=== PATIENT | female | born 1965 | race Caucasian/White ===

== ENCOUNTER 2018-10-06 15:50 | Emergency (ER) | payer OTHER, SELFPAY ==
[2018-10-06 16:06] VITALS: BP 147/86; PULSE 97; RESP 18; TEMP 36.9; O2SAT 95
--- NOTE | 2018-10-06 16:12 | DI.RAD.S_ITS ---
PROCEDURE: XR HAND LT MIN 3V INDICATIONS: deformity TECHNIQUE: 3 views of the hand(s) acquired. COMPARISON: None. FINDINGS: Bones: No previously unidentified fractures or dislocations. The multiple fracture planes involving the distal radius and ulna are again seen and better visualized by the prior dedicated wrist plain films. Carpal bones are normally aligned. No suspicious bony lesions. Soft tissues: No suspicious soft tissue calcifications. IMPRESSION: Please refer to dedicated wrist plain film report from same date. 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 The carpal bones visualized appear intact. Dictated by: Michael Clark M.D. on 10/06/2018 at 16:45 Approved by: Michael Clark M.D. on 10/06/2018 at 16:45
--- NOTE | 2018-10-06 16:12 | DI.RAD.S_ITS ---
PROCEDURE: XR WRIST LT MIN 3V INDICATIONS: deformity TECHNIQUE: 3 views of the wrist were acquired. COMPARISON: None. FINDINGS: Bones: No dislocations. No suspicious bony lesions. There is a comminuted impacted intra-articular and dorsally angulated distal radius Colles' fracture in addition to a fracture across the base of the ulnar styloid process Scaphoid view: Not obtained of the scaphoid visualized appears normal Soft tissues: No suspicious soft tissue calcifications. IMPRESSION: Significant traumatic injury to the distal radius has occurred with intra-articular dorsally angulated and impacted multiple fracture planes, displacing and angulating the carpal bones somewhat dorsally on the lateral view. Ulnar styloid process base fracture. Dictated by: Michael Clark M.D. on 10/06/2018 at 16:43 Approved by: Michael Clark M.D. on 10/06/2018 at 16:44
--- NOTE | 2018-10-06 17:25 | ED.UPPEXIN ---
HPI - Extremity Injury (Upper) General Chief Complaint: Extremity Injury, Upper Stated Complaint: FALL LEFT HAND INJURY Time Seen by Provider: 10/06/18 17:14 Source: patient and family Mode of arrival: ambulatory Limitations: no limitations History of Present Illness HPI narrative: This is a 53-year-old female comes to the emergency department after falling. Patient is complaining of pain in her left wrist. Patient states that she was washing a 15 passenger van the hose got stuck, she pulled on it gave way and she fell backwards. Patient states that she immediately had pain and new there was a problem. She has deformity. She does not any numbness or tingling. She has injury to the 3rd finger out she states occurred last week. She fell while pulling a dock cart and fell onto a metal graded walkway cutting the finger. She did not have any repair because they live on [address]. She has been keeping it clean. She states her tetanus is not up-to-date. Patient denies any other injuries. She states she did not hit her head, she denies any neck or back injury. she does not have any numbness, tingling or weakness. Related Data Home Medications Medication Instructions Recorded Confirmed levothyroxine 75 mcg PO DAILY 10/06/18 10/06/18 thyroid (pork) [RN MDS COORDINATOR Thyroid] 30 mg PO DAILY 10/06/18 Previous Rx's Medication Instructions Recorded acetaminophen-codeine 1 tab PO Q6H PRN #14 tab 10/06/18 [Tylenol-Codeine #3] ondansetron HCl [Zofran] 4 mg PO QID PRN #14 tab 10/06/18 Allergies Allergy/AdvReac Type Severity Reaction Status Date / Time No Known Drug Allergies Allergy Verified 10/06/18 16:06 Review of Systems Review of Systems ROS Unobtainable: All systems reviewed & are unremarkable except as noted in HPI and below Constitutional Denies weakness Musculoskeletal Reports as per HPI, Reports deformity, Reports arthralgias (Left wrist), Reports limited range of motion, Denies muscle weakness, Denies numbness and Denies tingling Integumentary/Breasts Reports unusual bruising and Reports wounds (3rd finger from last week) Neurologic Denies numbness, Denies tingling, Denies paresthesias and Denies weakness [facility] Medical History (Updated 10/06/18 @ 19:30 by Virginia James DO) Hypothyroid (Chronic) Social History Smoking Status: Never smoker Social History (Updated 10/06/18 @ 17:45 by Virginia James DO) details: Lives on [address] household members: spouse lives independently: Yes Smoking Status: Never smoker Exam Narrative Exam Narrative: GENERAL: Alert and oriented x three, well-nourished, well-appearing female in mild distress. HEENT: Head normocephalic, atraumatic, EOMI, pupils reactive, face symmetric, moist mucous membranes NECK: Supple, full range of motion CARDIOVASCULAR: Regular rate and rhythm without murmurs, rubs or gallops. RESPIRATORY: Breath sounds equal bilaterally, no wheezes rales or rhonchi. ABDOMEN: Soft, nontender. Normoactive bowel sounds all 4 quadrants. No guarding or rebound, rigidity, no mass EXTREMITIES: Normal range of motion, no clubbing or edema. except for at the left upper extremity. Patient has 2+ radial pulse. She has obvious deformity at the wrist. Patient has sensation in all 5 fingers. She has full range of motion. she does have increased pain with movement of the thumb. Patient does have add injury to the distal 3rd finger. NEUROLOGICAL: Cranial nerves II through XII grossly intact. Moving all extremities SKIN: Warm, dry, no petechiae, no rashes or lesions. Initial Vital Signs Initial Vital Signs: Vital Signs Temperature 98.5 F 10/06/18 16:06 Pulse Rate 97 H 10/06/18 16:06 Respiratory Rate 18 10/06/18 16:06 Blood Pressure 147/86 H 10/06/18 16:06 Pulse Oximetry 95 10/06/18 16:06 Procedures Orthopedic Joint Reduction Joint #1: Time Out Performed: Yes Side: left Joint Reduction Location: wrist Analgesia: hematoma block Local Anesthesia: lidocaine 1% Amount of anesthesic used (mL): 8 Technique used: traction/counter-traction Post-reduction neuro exam: intact Post-reduction vascular: intact Post Reduction X-Ray Obtained: Yes Splint Applied: Yes Patient Tolerated Procedure: Well (patient felt slightly nauseated/lightheaded after procedure.) [facility] [place] Procedure Name of Procedure: Hematoma wrist block Side (if applicable): left Location: Left wrist Time out performed: Yes Technique/Description of procedure performed: Verbal consent was obtained from the patient with her and nursing at bedside. Patient's area was cleansed with alcohol and chlorhexidine swab. A 25 gauge needle was inserted, aspiration with no blood and 8 cc of 1% lidocaine was injected into the joint space. Patient did have improvement of her pain at the joint. Patient tolerated procedure: Well Complications: none Course Orders Ordered: ED Orders 10/06/18 16:12 XR hand LT min 3V Stat XR wrist LT min 3V Stat 10/06/18 19:26 XR wrist LT 2V Stat Discontinued Medications Hydrocodone Bitart/Acetaminophen ([place] 5/325) 1 tab PO NOW ONE Stop: 10/06/18 17:41 Last Admin: 10/06/18 17:51 Dose: 1 tab Diphtheria/Tetanus/Acell Pertussis (Adacel) 0.5 ml IM .ONCE ONE Stop: 10/06/18 17:44 Last Admin: 10/06/18 17:58 Dose: 0.5 ml Ondansetron HCl (Zofran Odt) 4 mg SL NOW ONE Stop: 10/06/18 17:41 Last Admin: 10/06/18 17:51 Dose: 4 mg Vital Signs - 8 hr 10/06/18 16:06 10/06/18 19:53 10/06/18 20:10 Temperature 98.5 F Pulse Rate 97 H 78 79 Respiratory Rate 18 18 18 Blood Pressure 147/86 H Blood Pressure [Right Arm] 98/58 L 115/68 Pulse Oximetry 95 98 MDM - Extremity Injury (Upper) Imaging Data left wrist xray: Radiologist's impression: [address] [address] XRay Report Signed Patient: Natalie Gibson [facility]#: [id number] : 1965Acct:[id number] Age/Sex: 53 / FDate of Service: 10/06/18 Loc: ED Accession Number: [id number] Procedure: XR wrist LT min 3V Ordering Provider: Virginia James D.O. PROCEDURE: XR WRIST LT MIN 3V INDICATIONS: deformity TECHNIQUE: 3 views of the wrist were acquired. COMPARISON: None. FINDINGS: Bones: No dislocations. No suspicious bony lesions. There is a comminuted impacted intra-articular and dorsally angulated distal radius Colles' fracture in addition to a fracture across the base of the ulnar styloid process Scaphoid view: Not obtained of the scaphoid visualized appears normal Soft tissues: No suspicious soft tissue calcifications. IMPRESSION: Significant traumatic injury to the distal radius has occurred with intra-articular dorsally angulated and impacted multiple fracture planes, displacing and angulating the carpal bones somewhat dorsally on the lateral view. Ulnar styloid process base fracture. Dictated by: Michael Clark M.D. on 10/06/2018 at 16:43 Approved by: Michael Clark M.D. on 10/06/2018 at 16:44 hand xray: Radiologist's impression: [address] [address] XRay Report Signed Patient: Natalie Gibson [facility]#: [id number] : 1965Acct:[id number] Age/Sex: 53 / FDate of Service: 10/06/18 Loc: ED Accession Number: [id number] Procedure: XR hand LT min 3V Ordering Provider: Virginia James D.O. PROCEDURE: XR HAND LT MIN 3V INDICATIONS: deformity TECHNIQUE: 3 views of the hand(s) acquired. COMPARISON: None. FINDINGS: Bones: No previously unidentified fractures or dislocations. The multiple fracture planes involving the distal radius and ulna are again seen and better visualized by the prior dedicated wrist plain films. Carpal bones are normally aligned. No suspicious bony lesions. Soft tissues: No suspicious soft tissue calcifications. IMPRESSION: Please refer to dedicated wrist plain film report from same date. 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 The carpal bones visualized appear intact. Dictated by: Michael Clark M.D. on 10/06/2018 at 16:45 Approved by: Michael Clark M.D. on 10/06/2018 at 16:45 Post left x-ray: Attestation: I personally reviewed and interpreted this imaging study as follows: My impression: Mild improvement in alignment. Radiologist's impression: [address] [address] XRay Report Signed Patient: Natalie Gibson [facility]#: [id number] : 1965Acct:[id number] Age/Sex: 53 / FDate of Service: 10/06/18 Loc: ED Accession Number: [id number] Procedure: XR wrist LT 2V Ordering Provider: Virginia James D.O. PROCEDURE: XR WRIST LT 2V INDICATIONS: post reduction TECHNIQUE: 2 views of the wrist were acquired. COMPARISON: [facility], CR, XR WRIST LT MIN 3V, 10/06/2018, 16:15. FINDINGS: Bones are viewed through cast material. Again noted is an impacted, severely comminuted distal radius fracture. Overall dorsal angulation is improved. An ulnar styloid avulsion is noted. IMPRESSION: Interval improvement of angulation in a markedly comminuted impacted distal radius fracture extending to the articular surface. Associated ulnar styloid fracture. Dictated by: Nuno Garza M.D. on 10/06/2018 at 20:26 Approved by: Nuno Garza M.D. on 10/06/2018 at 20:28 MDM Narrative Medical decision making narrative: Spoke with Dr. Salgado, plan for splinting, reduction and follow up outpatient for surgical repair. Discussed images including intra-articular in multiple pieces common impacted along with angulation and ulnar styloid process injury. patient did not wish to have a conscious sedation for attempted reduction. We discussed a hematoma block. She prefers to do this. Attempted patient had decent pain control but was difficult to manipulate, patient had very mild improvement. She tolerated the procedure well other than feeling a little bit lightheaded and nauseated. She had a little bit tingling immediately after the procedure but as lidocaine seems to wear off the tingling seems to be improving. We did reach just her splint. She is placed in a sugar-tong by nursing and myself. Patient's blood pressure was a little bit low afterwards. Switched her from [place] to Tylenol 3 for home as this may be part of the issue and send was Zofran as needed as well that she can take with the narcotic pain medication. Discharge Plan Departure Patient Disposition: Home Clinical Impression: Fracture of ulnar styloid Distal radial fracture Qualifiers: Encounter type: initial encounter Fracture type: closed Fracture morphology: other intra-articular Laterality: left Qualified Code(s): S52.572A - Other intraarticular fracture of lower end of left radius, initial encounter for closed fracture Discharge Date/Time: 10/06/18 20:27 Interventions: ED Discharge Assessment Last Done: 10/06/18 20:23 Instructions: DI for Wrist Fracture Activity Restrictions/Additional Instructions: Tuesday to set up follow-up with Orthopedic surgery. Let the office know you were seen in the ER any follow-up this week. You may take Tylenol up to a 1000 mg every 8 hours as needed for pain. You may take Tylenol #3 instead, this does have narcotic in it this medication can make you sleepy so do not drive, perform hazardous activities or make any major decisions while taking it. Splint Care: Keep splint clean and dry. Elevated affected body part to decrease swelling. OK to use ice pack on the affected body part. Use for 15-20 minutes each time, for 5-6x per day. If you develop worsening pain, numbness, tingling, discoloration of the affected body part, loosen the splint by loosening the KARMA wrap, and either see your doctor for an urgent re-assessment, or return to the Emergency Department. Return to the Emergency Department for any new or worsening symptoms. Prescriptions: New ondansetron HCl [Zofran] 4 mg tablet 4 mg PO QID PRN (Reason: nausea and vomiting) Qty: 14 RF: 0 acetaminophen-codeine [Tylenol-Codeine #3] 300-30 mg tablet 1 tab PO Q6H PRN (Reason: pain) Qty: 14 RF: 0 No Action levothyroxine 75 mcg tablet 75 mcg PO DAILY RF: 0 thyroid (pork) [RN MDS COORDINATOR Thyroid] 30 mg tablet 30 mg PO DAILY RF: 0 Referrals: Alexis Salgado MD [Physician] - 10/09/18 (call Tuesday for follow up appointment during the week.)
--- NOTE | 2018-10-06 17:30 | ED_ITS ---
HPI - Extremity Injury (Upper) General Chief Complaint: Extremity Injury, Upper Stated Complaint: FALL LEFT HAND INJURY Time Seen by Provider: 10/06/18 17:14 Source: patient and family Mode of arrival: ambulatory Limitations: no limitations History of Present Illness HPI narrative: This is a 53-year-old female comes to the emergency department after falling. Patient is complaining of pain in her left wrist. Patient states that she was washing a 15 passenger van the hose got stuck, she pulled on it gave way and she fell backwards. Patient states that she immediately had pain and new there was a problem. She has deformity. She does not any numbness or tingling. She has injury to the 3rd finger out she states occurred last week. She fell while pulling a dock cart and fell onto a metal graded walkway cutting the finger. She did not have any repair because they live on [address]. She has been keeping it clean. She states her tetanus is not up-to-date. Patient denies any other injuries. She states she did not hit her head, she denies any neck or back injury. she does not have any numbness, tingling or weakness. Related Data Home Medications Medication Instructions Recorded Confirmed levothyroxine 75 mcg PO DAILY 10/06/18 10/06/18 thyroid (pork) [[employer] Thyroid] 30 mg PO DAILY 10/06/18 Previous Rx's Medication Instructions Recorded acetaminophen-codeine 1 tab PO Q6H PRN #14 tab 10/06/18 [Tylenol-Codeine #3] ondansetron HCl [Zofran] 4 mg PO QID PRN #14 tab 10/06/18 Allergies Allergy/AdvReac Type Severity Reaction Status Date / Time No Known Drug Allergies Allergy Verified 10/06/18 16:06 Review of Systems Review of Systems ROS Unobtainable: All systems reviewed & are unremarkable except as noted in HPI and below Constitutional Denies weakness Musculoskeletal Reports as per HPI, Reports deformity, Reports arthralgias (Left wrist), Reports limited range of motion, Denies muscle weakness, Denies numbness and Denies tingling Integumentary/Breasts Reports unusual bruising and Reports wounds (3rd finger from last week) Neurologic Denies numbness, Denies tingling, Denies paresthesias and Denies weakness [facility] Medical History (Updated 10/06/18 @ 19:30 by Virginia James DO) Hypothyroid (Chronic) Social History Smoking Status: Never smoker Social History (Updated 10/06/18 @ 17:45 by Virginia James DO) details: Lives on [address] household members: spouse lives independently: Yes Smoking Status: Never smoker Exam Narrative Exam Narrative: GENERAL: Alert and oriented x three, well-nourished, well- appearing female in mild distress. HEENT: Head normocephalic, atraumatic, EOMI, pupils reactive, face symmetric, moist mucous membranes NECK: Supple, full range of motion CARDIOVASCULAR: Regular rate and rhythm without murmurs, rubs or gallops. RESPIRATORY: Breath sounds equal bilaterally, no wheezes rales or rhonchi. ABDOMEN: Soft, nontender. Normoactive bowel sounds all 4 quadrants. No guarding or rebound, rigidity, no mass EXTREMITIES: Normal range of motion, no clubbing or edema. except for at the left upper extremity. Patient has 2+ radial pulse. She has obvious deformity at the wrist. Patient has sensation in all 5 fingers. She has full range of motion. she does have increased pain with movement of the thumb. Patient does have add injury to the distal 3rd finger. NEUROLOGICAL: Cranial nerves II through XII grossly intact. Moving all extremities SKIN: Warm, dry, no petechiae, no rashes or lesions. Initial Vital Signs Initial Vital Signs: Vital Signs Temperature 98.5 F 10/06/18 16:06 Pulse Rate 97 H 10/06/18 16:06 Respiratory Rate 18 10/06/18 16:06 Blood Pressure 147/86 H 10/06/18 16:06 Pulse Oximetry 95 10/06/18 16:06 Procedures Orthopedic Joint Reduction Joint #1: Time Out Performed: Yes Side: left Joint Reduction Location: wrist Analgesia: hematoma block Local Anesthesia: lidocaine 1% Amount of anesthesic used (mL): 8 Technique used: traction/counter-traction Post-reduction neuro exam: intact Post-reduction vascular: intact Post Reduction X-Ray Obtained: Yes Splint Applied: Yes Patient Tolerated Procedure: Well (patient felt slightly nauseated/lightheaded after procedure.) [facility] [place] Procedure Name of Procedure: Hematoma wrist block Side (if applicable): left Location: Left wrist Time out performed: Yes Technique/Description of procedure performed: Verbal consent was obtained from the patient with her and nursing at bedside. Patient's area was cleansed with alcohol and chlorhexidine swab. A 25 gauge needle was inserted, aspiration with no blood and 8 cc of 1% lidocaine was injected into the joint space. Patient did have improvement of her pain at the joint. Patient tolerated procedure: Well Complications: none Course Orders Ordered: ED Orders 10/06/18 16:12 XR hand LT min 3V Stat XR wrist LT min 3V Stat 10/06/18 19:26 XR wrist LT 2V Stat Discontinued Medications Hydrocodone Bitart/Acetaminophen ([place] 5/325) 1 tab PO NOW ONE Stop: 10/06/18 17:41 Last Admin: 10/06/18 17:51 Dose: 1 tab Diphtheria/Tetanus/Acell Pertussis (Adacel) 0.5 ml IM .ONCE ONE Stop: 10/06/18 17:44 Last Admin: 10/06/18 17:58 Dose: 0.5 ml Ondansetron HCl (Zofran Odt) 4 mg SL NOW ONE Stop: 10/06/18 17:41 Last Admin: 10/06/18 17:51 Dose: 4 mg Vital Signs - 8 hr 10/06/18 16:06 10/06/18 19:53 10/06/18 20:10 Temperature 98.5 F Pulse Rate 97 H 78 79 Respiratory Rate 18 18 18 Blood Pressure 147/86 H Blood Pressure [Right Arm] 98/58 L 115/68 Pulse Oximetry 95 98 MDM - Extremity Injury (Upper) Imaging Data left wrist xray: Radiologist's impression: [address] [address] XRay Report Signed Patient: Natalie Gibson [facility]#: [id number] : 1965Acct:[id number] Age/Sex: 53 / FDate of Service: 10/06/18 Loc: ED Accession Number: [id number] Procedure: XR wrist LT min 3V Ordering Provider: Virginia James D.O. PROCEDURE: XR WRIST LT MIN 3V INDICATIONS: deformity TECHNIQUE: 3 views of the wrist were acquired. COMPARISON: None. FINDINGS: Bones: No dislocations. No suspicious bony lesions. There is a comminuted impacted intra-articular and dorsally angulated distal radius Colles' fracture in addition to a fracture across the base of the ulnar styloid process Scaphoid view: Not obtained of the scaphoid visualized appears normal Soft tissues: No suspicious soft tissue calcifications. IMPRESSION: Significant traumatic injury to the distal radius has occurred with intra-articular dorsally angulated and impacted multiple fracture planes, displacing and angulating the carpal bones somewhat dorsally on the lateral view. Ulnar styloid process base fracture. Dictated by: Michael Clark M.D. on 10/06/2018 at 16:43 Approved by: Michael Clark M.D. on 10/06/2018 at 16:44 hand xray: Radiologist's impression: [address] [address] XRay Report Signed Patient: Natalie Gibson [facility]#: [id number] : 1965Acct:[id number] Age/Sex: 53 / FDate of Service: 10/06/18 Loc: ED Accession Number: [id number] Procedure: XR hand LT min 3V Ordering Provider: Virginia James D.O. PROCEDURE: XR HAND LT MIN 3V INDICATIONS: deformity TECHNIQUE: 3 views of the hand(s) acquired. COMPARISON: None. FINDINGS: Bones: No previously unidentified fractures or dislocations. The multiple fracture planes involving the distal radius and ulna are again seen and better visualized by the prior dedicated wrist plain films. Carpal bones are normally aligned. No suspicious bony lesions. Soft tissues: No suspicious soft tissue calcifications. IMPRESSION: Please refer to dedicated wrist plain film report from same date. 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 The carpal bones visualized appear intact. Dictated by: Michael Clark M.D. on 10/06/2018 at 16:45 Approved by: Michael Clark M.D. on 10/06/2018 at 16:45 Post left x-ray: Attestation: I personally reviewed and interpreted this imaging study as follows: My impression: Mild improvement in alignment. Radiologist's impression: [address] [address] XRay Report Signed Patient: Natalie Gibson MMR#: [id number] : 1965Acct:[id number] Age/Sex: 53 / FDate of Service: 10/06/18 Loc: ED Accession Number: [id number] Procedure: XR wrist LT 2V Ordering Provider: Virginia James D.O. PROCEDURE: XR WRIST LT 2V INDICATIONS: post reduction TECHNIQUE: 2 views of the wrist were acquired. COMPARISON: [facility], CR, XR WRIST LT MIN 3V, 10/06/2018, 16:15. FINDINGS: Bones are viewed through cast material. Again noted is an impacted, severely comminuted distal radius fracture. Overall dorsal angulation is improved. An ulnar styloid avulsion is noted. IMPRESSION: Interval improvement of angulation in a markedly comminuted impacted distal radius fracture extending to the articular surface. Associated ulnar styloid fr acture. Dictated by: Nuno Garza M.D. on 10/06/2018 at 20:26 Approved by: Nuno Garza M.D. on 10/06/2018 at 20:28 MDM Narrative Medical decision making narrative: Spoke with Dr. Salgado, plan for splinting, reduction and follow up outpatient for surgical repair. Discussed images including intra-articular in multiple pieces common impacted along with angulation and ulnar styloid process injury. patient did not wish to have a conscious sedation for attempted reduction. We discussed a hematoma block. She prefers to do this. Attempted patient had decent pain control but was difficult to manipulate, patient had very mild improvement. She tolerated the procedure well other than feeling a little bit lightheaded and nauseated. She had a little bit tingling immediately after the procedure but as lidocaine seems to wear off the tingling seems to be improving. We did reach just her splint. She is placed in a sugar-tong by nursing and myself. Patient's blood pressure was a little bit low afterwards. Switched her from [place] to Tylenol 3 for home as this may be part of the issue and send was Zofran as needed as well that she can take with the narcotic pain medication. Discharge Plan Departure Patient Disposition: Home Clinical Impression: Fracture of ulnar styloid Distal radial fracture Qualifiers: Encounter type: initial encounter Fracture type: closed Fracture morphology: other intra-articular Laterality: left Qualified Code(s): S52.572A - Other intraarticular fracture of lower end of left radius, initial encounter for closed fracture Discharge Date/Time: 10/06/18 20:27 Interventions: ED Discharge Assessment Last Done: 10/06/18 20:23 Instructions: DI for Wrist Fracture Activity Restrictions/Additional Instructions: Tuesday morning to set up follow-up with Orthopedic surgery. Let the office know you were seen in the ER any follow-up this week. You may take Tylenol up to a 1000 mg every 8 hours as needed for pain. You may take Tylenol #3 instead, this does have narcotic in it this medication can make you sleepy so do not drive, perform hazardous activities or make any major decisions while taking it. Splint Care: Keep splint clean and dry. Elevated affected body part to decrease swelling. OK to use ice pack on the affected body part. Use for 15-20 minutes each time, for 5-6x per day. If you develop worsening pain, numbness, tingling, discoloration of the affected body part, loosen the splint by loosening the KARMA wrap, and either see your doctor for an urgent re-assessment, or return to the Emergency Department. Return to the Emergency Department for any new or worsening symptoms. Prescriptions: New ondansetron HCl [Zofran] 4 mg tablet 4 mg PO QID PRN (Reason: nausea and vomiting) Qty: 14 RF: 0 acetaminophen-codeine [Tylenol-Codeine #3] 300-30 mg tablet 1 tab PO Q6H PRN (Reason: pain) Qty: 14 RF: 0 No Action levothyroxine 75 mcg tablet 75 mcg PO DAILY RF: 0 thyroid (pork) [[employer] Thyroid] 30 mg tablet 30 mg PO DAILY RF: 0 Referrals: Alexis Salgado MD [Physician] - 10/09/18 (call Tuesday for follow up appointment during the week.)
[2018-10-06] MEDS: HYDROCODONE/ACET 5/325 TABLET 1 TAB PO (17:51)
[2018-10-06] MEDS: ONDANSETRON 4 MG ODT SL (17:51)
[2018-10-06] MEDS: TET,DIPH,PERTUSS(ACELL),VAC/PF 0.5 ML SYRINGE IM (17:58)
--- NOTE | 2018-10-06 18:37 | PC.NURSE ---
noted obvious deformity and swelling in L radial aspect of wrist
--- NOTE | 2018-10-06 19:26 | DI.RAD.S_ITS ---
PROCEDURE: XR WRIST LT 2V INDICATIONS: post reduction TECHNIQUE: 2 views of the wrist were acquired. COMPARISON: [facility], CR, XR WRIST LT MIN 3V, 10/06/2018, 16:15. FINDINGS: Bones are viewed through cast material. Again noted is an impacted, severely comminuted distal radius fracture. Overall dorsal angulation is improved. An ulnar styloid avulsion is noted. IMPRESSION: Interval improvement of angulation in a markedly comminuted impacted distal radius fracture extending to the articular surface. Associated ulnar styloid fracture. Dictated by: Nuno Garza M.D. on 10/06/2018 at 20:26 Approved by: Nuno Garza M.D. on 10/06/2018 at 20:28
[2018-10-06 19:53] VITALS: BP 98/58; PULSE 78; RESP 18
[2018-10-06 20:10] VITALS: BP 115/68; PULSE 79; RESP 18; O2SAT 98
== END 2018-10-06 20:27 | disposition home or self-care (01) ==
PROVIDERS: Emergency Provider Emergency Medicine
DX: S52.613A Displaced fracture of unspecified ulna styloid process, initial encounter for closed fracture (principal); S52.501A Unspecified fracture of the lower end of right radius, initial encounter for closed fracture; W19.XXXA Unspecified fall, initial encounter; Y99.0 Civilian activity done for income or pay; Z23 Encounter for immunization
CPT/HCPCS: 25650; 29125; 64450; 73100; 73110; 73130; 90471; 99283; 99284; 90715

== ENCOUNTER 2018-10-11 09:02 | Day surgery (SDC) | payer OTHER, SELFPAY ==
[2018-10-11] VITALS (7 sets, daily range): BP systolic 110–150; BP diastolic 56–90; PULSE 69–92; RESP 16–18; TEMP 36.4–37.1; O2SAT 94–99; BMI 26.9
[2018-10-11] MEDS: LACTATED RINGERS 1,000 ML 42 ML IV ×2 (13:30→14:41)
--- NOTE | 2018-10-11 13:31 | P.HP_ITS ---
History of Present Illness Date Patient Seen: 10/11/18 Time Patient Seen: 13:30 Chief complaint: 93592 OFIF LEFT DISTAL RADIUS FX Narrative: Patient is a 53-year-old woman who fell last Tuesday on October 06, 2018 injuring her left wrist. Radiographs emergency room revealed a displaced intra- articular distal radius fracture. The wrist was reduced and splinted. She denies any numbness or tingling. She has been using Tylenol No. 3 at night for pain. she denies previous problems with the wrist. Patient History Medical History Left wrist fracture (Acute 10/06/18) Hypothyroid (Chronic) Social History (Updated 10/06/18 @ 17:45 by Virginia James DO) details: Lives on [address] household members: spouse lives independently: Yes Smoking Status: Never smoker alcohol intake: current Comment: Her only surgery is a previous hysterectomy. Family & Social History Social History: household members spouse lives independently Yes Tobacco & Substance use: Smoking Status Never smoker alcohol intake current alcohol intake frequency 0-2 drinks per day Substance Use Type does not use Meds Home Medications Medication Instructions Recorded Confirmed Type acetaminophen-codeine 1 tab PO Q6H PRN #14 tab 10/06/18 10/11/18 Rx [Tylenol-Codeine #3] levothyroxine 75 mcg PO DAILY 10/06/18 10/11/18 History ondansetron HCl [Zofran] 4 mg PO QID PRN #14 tab 10/06/18 10/10/18 Rx thyroid (pork) [[employer] Thyroid] 30 mg PO DAILY 10/06/18 10/11/18 History Allergies Allergy/AdvReac Type Severity Reaction Status Date / Time bacitracin Allergy Hives Verified 10/11/18 12:13 [From Neosporin ([id number])] neomycin Allergy Hives Verified 10/11/18 12:13 [From Neosporin ([id number])] polymyxin B Allergy Hives Verified 10/11/18 12:13 [From Neosporin ([id number])] Review of Systems Review of Systems All systems reviewed & are unremarkable except as noted in HPI and below Exam Vital Signs (past 8 hours): - 10/11/18 11:59 Temperature 97.8 F Pulse Rate 88 Respiratory Rate 18 Blood Pressure 150/90 H Pulse Oximetry 99 Oxygen Delivery Method Room Air Const General: cooperative and healthy appearing Orientation: alert, awake and oriented x3 Resp Auscultation: clear to auscultation bilaterally Cardio Rate: regular rate Rhythm: regular rhythm Neuro Other: Sensation is intact to light touch throughout. Motor function is grossly intact but cannot be fully tested due to splint. She does have a Band-Aid on her finger where she scraped it about a week earlier. Extrem Other: The left arm is in a splint which was not removed for examination. There is a Band-Aid on the finger. No signs of infection. The fracture itself is closed. Swelling is relatively minimal. Tenderness over the distal radius. Assessment & Plan Assessment & Plan narrative: Displaced intra-articular left distal radius fracture. I discussed the nature of the injury and further treatment options with the patient. I have recommended open reduction internal fixation with a locking distal humeral plate. the nature of that procedure including the risks, benefits, alternatives, postoperative course and expected outcome were discussed and all questions answered. Operative site confirmed and marked. Time Spent With Patient Time with patient: 15-24 minutes
--- NOTE | 2018-10-11 13:31 | PM.PREOP ---
Pre-operative Note Interval Note History & Physical reviewed/Exam performed by Physician: Yes Changes to H&P: No
--- NOTE | 2018-10-11 13:35 | PM.OP.1 ---
Operative Date/Time/Diagnoses Date of procedure: 10/11/18 Time of procedure: 15:00 Pre-op diagnosis: Displaced intra-articular distal radius fracture left wrist. Post-op diagnosis: same Procedure & Clinicians Procedure: Open reduction internal fixation left distal radius fracture with locking plate. Same procedure as scheduled: Yes Indications: The patient presents today for open reduction internal fixation left distal radius fracture. The nature of the procedure including the risks and benefits, alternatives, postoperative course and expected outcome were discussed and all questions answered. Consent was obtained. Operative site confirmed and marked. Surgeon: Alexis Salgado Sand Temperer: Addison Jiménez Anesthesia Type: General, Peripheral nerve block and Local Operative Notes Findings: The distal radius fracture was intra-articular but the intra-articular fragment was not significant displaced. A relatively anatomic reduction was obtained. Final fluoroscopy shows a nice positioning of both the fracture and plate. Closure Type: primary Specimen(s): none sent Prosthetic devices, grafts, tissues, transplants, or devices: Hand innovation locking distal radial plate, DVR Applied: implant(s) Estimated Blood Loss (mL): 5 Blood products transfused: none Tourniquet time (min): 56 Procedure in detail: The patient was taken operative suite and placed under general anesthesia. Prophylactic antibiotics were given prior to surgery. the arm was then prepped and draped usual sterile fashion. The arm was exsanguinated with an Esmarch dressing and tourniquet raised to 200 torr. An 8 cm incision was made directly over the flexor carpi radialis extending from the wrist crease proximally. tenotomy scissors were used to dissect the subcutaneous tissue and expose the extensor carpi radialis tendon. both the superficial and deep sheath was incised and the tendon retracted radially blunt dissection was then carried out to expose the pronator quadratus. The pronator quadratus was elevated off the bone exposing the distal radius and fracture site. the locking plate was selected and provisionally pinned and checked on fluoroscopy. Once the plate was adequate it was locked to the shaft with a single bicortical screw. next all of the distal peg holes were filled with smooth pegs. AP and lateral fluoroscopy was performed to ensure none of the hardware entered the joint. the final 2 shaft screws were then placed. final AP and lateral fluoroscopy showed excellent position of the fracture and hardware. The wound was copiously irrigated. The wound was then anesthetized with 8 cc 0.5% Marcaine with epinephrine. the wound was closed with some interrupted 3 O Vicryl and then a running for O nylon suture at the skin level. Xeroform sterile gauze dressings were applied. The patient was placed in a volar splint leaving the fingers and elbow free. The patient tolerated procedure well and was returned recovery room in good condition. Complications: none Condition: stable Disposition: same day surgery Plan for aftercare: The patient will keep the splint on until clinic follow-up. Follow up in 12-14 days. Sutures will be removed and repeat x-rays taken at follow-up. She will then be switched to a removable brace. She was instructed in pronation and supination range of motion exercises.
[2018-10-11] MEDS: MIDAZOLAM 2 MG/2 ML VIAL IV (13:42)
[2018-10-11] MEDS: fentaNYL 100 MCG/2 ML INJ 50 MCG IV (13:44)
[2018-10-11] MEDS: CLINDAMYCIN 600 MG/50 ML PIGGYBACK 50 MG IV (13:50)
--- NOTE | 2018-10-11 14:04 | SUR.PREOP ---
Block start time 1344 . Monitoring initiated and maintained throughout procedure. Oxygen and medications given per anesthesiologist instructions. Patient remained stable throughout procedure, no adverse reactions noted. Block end time [1349].
--- NOTE | 2018-10-11 14:21 | SUR.OPER ---
Supine on padded OR bed, head on pillow, non-operative arm secured on padded arm board at <90 degrees abduction, legs uncrossed, pillow under knees, safety belt at thigh, tape over blanket over lower legs.
[2018-10-11] MEDS: BUPIVACAINE 0.25% W/ EPI (PF) 10 ML VIAL 20 ML INJ (14:30)
== END 2018-10-11 16:41 | disposition home or self-care (01) ==
PROVIDERS: PCP Physician Assistant; Visit Provider Orthopaedic Surgery
PROC: (CPT 25608; principal; 2018-10-11 11:15)
DX: S52.502A Unspecified fracture of the lower end of left radius, initial encounter for closed fracture (principal); W19.XXXA Unspecified fall, initial encounter; G89.18 Other acute postprocedural pain
CPT/HCPCS: 25608; 64415; 64450; J1100; J2250; J2405; J2704; J3010

== ENCOUNTER → 2020-02-28 09:49 | Outpatient (CLI) | payer OTHER, SELFPAY ==
[2020-02-28 10:27] LABS: Add Manual Diff / Slide Review NO; Basophils Absolute Auto 0 /uL (0-100); Basophils Percent Auto 0.3 % (0-2); Eosinophils Absolute Auto 300 /uL (0-450); Eosinophils Percent Auto 4.4 % (2-4); Hematocrit 44.8 % (36-46); Hemoglobin 15.2 g/dL (12.0-16.0); Lymphocytes Absolute Auto 1900 /uL (1100-4500); Lymphocytes Percent Auto 26.3 % (25-40); Mean Corpuscular HGB Conc 33.9 % (30-36); Mean Corpuscular Hemoglobin 32.1 PG (26-34); Mean Corpuscular Volume 94.5 fL (80-100); Monocytes Absolute Auto 600 /uL (0-900); Neutrophils Absolute Auto 4400 /uL (1500-7000); Platelet Count 205 X10^3/uL (150-400); Red Blood Cell Count 4.75 X10^6/uL (4.0-5.2); Red Cell Distribution Width 12.4 % (11.6-14.8); White Blood Cell Count 7.2 X10^3/uL (4.5-11.0)
[2020-02-28 10:39] LABS: Alanine Aminotransferase 19 IU/L (<35); Albumin 4.8 g/dL (3.5-5.0); Albumin Globulin Ratio 1.7 (1.0-2.8); Alkaline Phosphatase 124 U/L (38-126); Aspartate Aminotransferase 25 IU/L (14-36); BUN Creatinine Ratio 25.8 (6-22); Bilirubin Total 0.7 mg/dL (0.2-1.3); Blood Urea Nitrogen 17 mg/dL (7-17); Carbon Dioxide 28 mmol/L (22-32); Chloride 104 mmol/L (98-107); Cholesterol 238 mg/dL (140-199); Estimated Glomerular Filt Rate > 60.0 mL/min (>60); Globulin 2.8 g/dL (1.7-4.1); Glucose 97 mg/dL (70-100); HDL Cholesterol 97 mg/dL (40-60); HEMOLYSIS < 15 (0-50); LDL Cholesterol Calculated 130 mg/dL (<100); Potassium 4.5 mmol/L (3.4-5.1); Sodium 139 mmol/L (137-145); Total Protein 7.6 g/dL (6.3-8.2); Triglycerides 56 mg/dL (35-150)
[2020-02-28 10:47] LABS: Free T3, Triiodothyronine Free 4.21 pg/mL (2.77-5.27)
[2020-02-28 10:48] LABS: Vitamin D 25 Hydroxy (D3) 19.3 ng/mL (30.0-100.0)
[2020-02-28 11:01] LABS: TSH w/ Reflex to FT4 2.09 uIU/mL (0.47-4.68)
== END ==
PROVIDERS: PCP Physician Assistant; Referring Provider Physician Assistant; Visit Provider Physician Assistant
DX: Z00.00 Encounter for general adult medical examination without abnormal findings (principal)
CPT/HCPCS: 36415; 80053; 80061; 82306; 84443; 84481; 85025

== ENCOUNTER → 2021-04-30 11:05 | Outpatient (CLI) | payer OTHER, SELFPAY ==
[2021-04-30 13:16] LABS: BUN Creatinine Ratio 26.4 (6-22); Blood Urea Nitrogen 19 mg/dL (7-17); Estimated Glomerular Filt Rate > 60.0 mL/min (>60)
[2021-04-30 13:32] LABS: Free T4, Direct Thyroxine 1.14 ng/dL (0.78-2.19)
[2021-04-30 13:45] LABS: Thyroid Stimulating Hormone 1.72 uIU/mL (0.47-4.68)
[2021-04-30 14:12] LABS: Free T3, Triiodothyronine Free 4.19 pg/mL (2.77-5.27)
[2021-04-30 16:46] LABS: Vitamin D 25 Hydroxy (D3) 23.5 ng/mL (30.0-100.0)
== END ==
PROVIDERS: PCP Student in an Organized Health Care Education/Training Program; Referring Provider Student in an Organized Health Care Education/Training Program; Visit Provider Student in an Organized Health Care Education/Training Program
DX: R03.0 Elevated blood-pressure reading, without diagnosis of hypertension (principal); E03.9 Hypothyroidism, unspecified; E55.9 Vitamin D deficiency, unspecified
CPT/HCPCS: 36415; 82306; 82565; 84439; 84443; 84481; 84520